=== PATIENT | female | born 1945 ===

== ENCOUNTER 2018-05-12 18:21 | Emergency (ER) | payer SELFPAY ==
[~2018-05-12] VITALS: Ht 165.1 cm; Wt 89.8 kg
[2018-05-12] MEDS ORDERED: ENALAPRIL MALEAT5 MG ORAL (18:50)
[2018-05-12] MEDS ORDERED: OMEPRAZOLE20 M2 ORAL (18:50)
[2018-05-12 19:00] VITALS: BP 172/79
[2018-05-12] MEDS ORDERED: Isovue-300 100ml vial INJ PRN (19:00)
[2018-05-12 20:15] LABS: BASOPHILS % (AUTO) 1.6 % (0.0-2.0); EOSINOPHILS % (AUTO) 2.2 % (0.0-3.0); HEMATOCRIT 38.6 % (37.0-47.0); HEMOGLOBIN 12.4 G/DL (12.0-16.0); LYMPHOCYTES % (AUTO) 45.7 % (20.0-45.0); MEAN CORPUSCULAR VOLUME 79 FL (80-99); MONOCYTES % (AUTO) 6.6 % (1.0-10.0); NEUTROPHILS % (AUTO) 43.8 % (45.0-75.0); PLATELET COUNT 317 K/UL (150-450); RED BLOOD COUNT 4.87 M/UL (4.20-5.40); RED CELL DISTRIBUTION WIDTH 14.1 % (11.6-14.8); WHITE BLOOD COUNT 8.2 K/UL (4.8-10.8)
[2018-05-12 20:22] LABS: ANION GAP 7 mmol/L (5-15); BLOOD UREA NITROGEN 14 mg/dL (7-18); CALCIUM 9.4 MG/DL (8.5-10.1); CARBON DIOXIDE 31 MMOL/L (21-32); CHLORIDE 104 MMOL/L (98-107); CREATININE 0.8 MG/DL (0.55-1.30); SODIUM 142 MMOL/L (136-145)
[2018-05-12 20:26] LABS: ALANINE AMINOTRANSFERASE 31 U/L (12-78); ALBUMIN 3.3 G/DL (3.4-5.0); ALBUMIN/GLOBULIN RATIO 0.7 (1.0-2.7); ALKALINE PHOSPHATASE 109 U/L (46-116); ASPARTATE AMINO TRANSFERASE 19 U/L (15-37); BILIRUBIN,TOTAL 0.2 MG/DL (0.2-1.0)
[2018-05-12] MEDS ORDERED: Omnipaque-300 100ml vial INJ ONE (20:57)
[2018-05-12 21:08] LABS: APPEARANCE,URINE CLEAR; BILIRUBIN, URINE NEGATIVE (NEGATIVE); COLOR,URINE PALE YELLOW; GLUCOSE, URINE (UA) NEGATIVE (NEGATIVE); KETONES,URINE NEGATIVE (NEGATIVE); LEUKOCYTE ESTERASE ,URINE NEGATIVE (NEGATIVE); NITRITE,URINE NEGATIVE (NEGATIVE); PH,URINE 7 (4.5-8.0); PROTEIN,URINE NEGATIVE (NEGATIVE); UROBILINOGEN,URINE NORMAL MG/DL (0.0-1.0)
[2018-05-12 21:20] VITALS: BP 157/71
--- NOTE | 2018-05-12 21:45 | Emergency Room Report ---
History of Present Illness General Chief Complaint: Constipation Source: Patient Present Illness HPI This patient has 2 complaints. The patient states she's had a cough for about a week. She states she tends to get pneumonia. She also states that she has had abdominal discomfort diffusely and has not had a bowel movement in about 4 days. She denies fever or chills. She denies nausea or vomiting. She denies dysuria or hematuria. She denies chest pain or shortness of breath. She has no other complaints. Allergies: Coded Allergies: No Known Allergies (Unverified , 05/12/18) Patient History Past Medical History: see triage record, HTN Social History: Denies: smoking, alcohol use, drug use Reviewed Nursing Documentation: PMH: Agreed; PSxH: Agreed Nursing Documentation-PMH Past Medical History: No History, Except For Hx Hypertension: Yes Review of Systems All Other Systems: negative except mentioned in HPI Physical Exam Vital Signs Date Time Temp Pulse Resp B/P (MAP) Pulse Ox O2 Delivery O2 Flow Rate FiO2 05/12/18 18:46 98.2 80 20 202/99 97 Room Air Sp02 EP Interpretation: reviewed, normal General Appearance: no apparent distress, alert, GCS 15, non-toxic Head: normocephalic, atraumatic Eyes: bilateral eye normal inspection, bilateral eye PERRL ENT: hearing grossly normal, normal pharynx, no angioedema, normal voice Neck: full range of motion, supple/symm/no masses Respiratory: chest non-tender, lungs clear, normal breath sounds, no respiratory distress, no retraction, no accessory muscle use, speaking full sentences Cardiovascular #1: regular rate, rhythm, no edema Gastrointestinal: normal bowel sounds, soft, non-distended, no guarding, no rebound, tenderness - Mild TTP diffusely Rectal: deferred Musculoskeletal: back normal, gait/station normal, normal range of motion, non- tender Neurologic: alert, oriented x3, responsive, motor strength/tone normal, sensory intact, speech normal Psychiatric: judgement/insight normal, memory normal, mood/affect normal, no suicidal/homicidal ideation Skin: normal color, no rash, warm/dry, well hydrated Medical Decision Making Diagnostic Impression: Primary Impression: Constipation Additional Impression: Pneumonia ER Course This patient presents with constipation. Given the patient's age and 4 days of no bowel movements, I did obtain a CT of the abdomen and pelvis to rule out diverticulitis or mass or other intra-abdominal etiology. However, CT of the abdomen and pelvis was negative. Patient also has a cough. Given the patient' s age I will go ahead and treat presumptively with a course of antibiotics. I will place the patient on a bowel regimen. At this time, I did not identify an emergency medical condition. The patient is given close return precautions and follow up instructions. Laboratory Tests Test 05/12/18 19:50 05/12/18 20:53 White Blood Count 8.2 K/UL (4.8-10.8) Red Blood Count 4.87 M/UL (4.20-5.40) Hemoglobin 12.4 G/DL (12.0-16.0) Hematocrit 38.6 % (37.0-47.0) Mean Corpuscular Volume 79 FL (80-99) L Mean Corpuscular Hemoglobin 25.5 PG (27.0-31.0) L Mean Corpuscular Hemoglobin Concent 32.2 G/DL (32.0-36.0) Red Cell Distribution Width 14.1 % (11.6-14.8) Platelet Count 317 K/UL (150-450) Mean Platelet Volume 7.4 FL (6.5-10.1) Neutrophils (%) (Auto) 43.8 % (45.0-75.0) L Lymphocytes (%) (Auto) 45.7 % (20.0-45.0) H Monocytes (%) (Auto) 6.6 % (1.0-10.0) Eosinophils (%) (Auto) 2.2 % (0.0-3.0) Basophils (%) (Auto) 1.6 % (0.0-2.0) Sodium Level 142 MMOL/L (136-145) Potassium Level 4.0 MMOL/L (3.5-5.1) Chloride Level 104 MMOL/L (98-107) Carbon Dioxide Level 31 MMOL/L (21-32) Anion Gap 7 mmol/L (5-15) Blood Urea Nitrogen 14 mg/dL (7-18) Creatinine 0.8 MG/DL (0.55-1.30) Estimate Glomerular Filtration Rate mL/min (>60) Glucose Level 107 MG/DL (74-106) H Calcium Level 9.4 MG/DL (8.5-10.1) Total Bilirubin 0.2 MG/DL (0.2-1.0) Aspartate Amino Transferase (AST) 19 U/L (15-37) Alanine Aminotransferase (ALT) 31 U/L (12-78) Alkaline Phosphatase 109 U/L (46-116) Total Protein 7.9 G/DL (6.4-8.2) Albumin 3.3 G/DL (3.4-5.0) L Globulin 4.6 g/dL Albumin/Globulin Ratio 0.7 (1.0-2.7) L Lipase 115 U/L (73-393) Urine Color Pale yellow Urine Appearance Clear Urine pH 7 (4.5-8.0) Urine Specific [place] 1.005 (1.005-1.035) Urine Protein Negative (NEGATIVE) Urine Glucose (UA) Negative (NEGATIVE) Urine Ketones Negative (NEGATIVE) Urine Blood Negative (NEGATIVE) Urine Nitrite Negative (NEGATIVE) Urine Bilirubin Negative (NEGATIVE) Urine Urobilinogen Normal MG/DL (0.0-1.0) Urine Leukocyte Esterase Negative (NEGATIVE) CT/MRI/US Diagnostic Results CT/MRI/US Diagnostic Results : Imaging Test Ordered: CT abd/pelvis Impression Local bowel wall thickening of the pylorus. Correlate for symptoms of duodenitis/peptic ulcer disease. Colonic diverticula without diverticulitis. No other acute findings. See official report. Last Vital Signs Date Time Temp Pulse Resp B/P (MAP) Pulse Ox O2 Delivery O2 Flow Rate FiO2 05/12/18 19:00 97.3 79 16 172/79 100 Room Air Status: improved Disposition: HOME, SELF-CARE Condition: Improved Referrals: NOT CHOSEN IPA/,REFERRING (PCP) Patient Instructions: Constipation, Adult Sara Aragon DO May 12, 2018 21:45
[2018-05-12] MEDS ORDERED: FLEET ENEMA133 ML RECTAL (22:21)
[2018-05-12] MEDS ORDERED: COLACE100 MG ORAL (22:21)
[2018-05-12] MEDS ORDERED: SIMETHICONE80 MG ORAL (22:21)
[2018-05-12] MEDS ORDERED: MIRALAX17 G2 ORAL (22:21)
[2018-05-12] MEDS ORDERED: PRILOSEC OTC20 MG ORAL (22:21)
[2018-05-12 22:31] VITALS: BP 170/73
--- NOTE | 2018-05-13 09:25 | Diagnostic Imaging Report ---
Indication: Abdominal pain Technique: Continuous helical transaxial imaging of the abdomen and pelvis was obtained from the lung bases to the pubic symphysis during intravenous contrast administration. Coronal 2-D reformats were also obtained. Study obtained in a Siemens sensation [address] Automatic Exposure Control was utilized. Total Dose length Product (DLP): 861.[address] Dose Index Volume (CTDIvol): 17.05 mGy Comparison: None Findings: Mild reticular nodular densities noted at the medial right lung base probably scarring or atelectasis. Gallbladder is contracted and not evaluated well. There is apparent enhancement and slight thickening of the wall of the duodenum/pylorus region. Peptic ulcer disease and duodenitis not excluded. Correlate clinically. Evaluation with endoscopy may be of benefit. This when should consider this. There is a well marginated the right renal cyst demonstrated measuring approximately 2.1 cm. There is no hydronephrosis. There is no adrenal mass. The pancreas and spleen appear unremarkable. No free fluid or free air identified. No evidence of bowel obstruction. Normal retrocecal appendix demonstrated. Diverticula noted within the colon. No evidence of acute diverticulitis. Small inguinal nodes are present bilaterally nonspecific in nature. IMPRESSION: Question of a duodenitis/antritis. Correlate clinically. Hiatal hernia Scarring versus atelectasis right lung base Right renal cyst Atherosclerotic disease. Breathing motion limiting evaluation. Diverticulosis of the colon. No definite diverticulitis. [facility] has communicated the preliminary results to the Emergency Department. Their findings are largely concordant with this report. The CT scanner at [facility] is accredited by the [employer] and the scans are performed using dose optimization techniques as appropriate to a performed exam including Automatic Exposure control.
== END 2018-05-12 22:30 | disposition home or self-care (01) ==
LOC: EMR 21:31
DX: K59.00 Constipation, unspecified (principal); R05 Cough; I10 Essential (primary) hypertension
CPT/HCPCS: 36415; 74177; 80053; 81003; 83690; 85025; 99284; Q9965; Q9967